=== PATIENT | female | born 1990 | race Caucasian/White ===

== ENCOUNTER → 2016-10-26 | Day surgery (SDC) | payer OTHER ==
[~2016-10-26] MED LIST: COLACE 100MG C100 MG PO; IBUPROFEN600 MG PO; NORCO 5-325 TA1 EACH PO; PRENATAL ONE T1 EACH PO
[2016-10-26 07:32] LABS: HEMOGLOBIN 12.5 gm/dl (12.3-15.3); RED BLOOD COUNT 3.96 M/UL (4.00-5.10); WHITE BLOOD COUNT 5.7 K/UL (4.5-11.0)
== END | disposition home or self-care (01) ==
LOC: OR 06:49
PROVIDERS: Obstetrics & Gynecology
PROC: 10D17ZZ Extraction of Products of Conception, Retained, Via Natural or Artificial Opening (ICD-10-PCS; principal; 2016-10-26 10:15)
DX: O02.1 Missed abortion (principal); J45.909 Unspecified asthma, uncomplicated; I73.9 Peripheral vascular disease, unspecified; D64.9 Anemia, unspecified; G43.909 Migraine, unspecified, not intractable, without status migrainosus; F41.9 Anxiety disorder, unspecified; F32.9 Major depressive disorder, single episode, unspecified; Z79.899 Other long term (current) drug therapy; Z98.890 Other specified postprocedural states
CPT/HCPCS: 36415; 81001; 85025; J1885; J2250; J2405; J2795; J7120

== ENCOUNTER 2021-06-05 11:07 | Emergency (ER) | payer OTHER ==
[~2021-06-05 11:07] MED LIST changes: +PEPCID20 MG PO; +ZANTAC150 MG PO
[2021-06-05 12:28] LABS: HEMOGLOBIN 11.9 gm/dl (12.3-15.3); RED BLOOD COUNT 4.2 M/UL (4.00-5.10); WHITE BLOOD COUNT 8.9 K/UL (4.5-11.0)
[2021-06-05 12:46] LABS: BUN/CREATININE RATIO 14 (0-10)
== END 2021-06-05 16:00 ==
LOC: ER1 11:07
PROVIDERS: Physician Assistant
DX: K02.9 Dental caries, unspecified (principal); L03.211 Cellulitis of face; K04.7 Periapical abscess without sinus
CPT/HCPCS: 70487; 80048; 85025; 87040; 96365; 96375; 99284; J0295; J1100; J1885; Q9967